=== PATIENT | female | born 1955 | race Two or more races ===

== ENCOUNTER 2018-10-19 14:31 | Inpatient (IN) | payer MEDICARE ==
[~2018-10-19] VITALS: Ht 162.6 cm; Wt 59.9 kg
[2018-10-19] MEDS ORDERED: diphenhydrAMINE HCL 50 MG/ML VIAL ONE (14:51)
[2018-10-19] MEDS ORDERED: HALOPERIDOL LACTATE INJ 5 MG/ML VIAL ONE (14:51)
[2018-10-19] MEDS ORDERED: HALOPERIDOL LACTATE INJ 5 MG/ML VIAL IM ONE (15:00)
[2018-10-19] MEDS ORDERED: diphenhydrAMINE HCL 50 MG/ML VIAL IM ONE (15:00)
--- NOTE | 2018-10-19 15:06 | NUR ---
PT BIBPA FROM SNF FOR INCREASED AGITATION; PT AAOX2-3, PT TO BED 6, VSS, PENDING MD GARVIN
[2018-10-19] MEDS ORDERED: ACET-868 PO (15:10)
[2018-10-19] MEDS ORDERED: HALO5TAB8 PO (15:10)
[2018-10-19] MEDS ORDERED: ATOR10TA PO (15:10)
[2018-10-19] MEDS ORDERED: MAGN400O6 PO (15:10)
[2018-10-19] MEDS ORDERED: BENZ0.5T43 PO (15:10)
[2018-10-19] MEDS ORDERED: GABA-532 PO (15:10)
[2018-10-19] MEDS ORDERED: DULO20CA PO (15:10)
[2018-10-19] MEDS ORDERED: LORA1TAB PO (15:10)
[2018-10-19] MEDS ORDERED: TRAZ-182 PO (15:10)
[2018-10-19] MEDS ORDERED: BISA10SU11 RC (15:10)
[2018-10-19] MEDS ORDERED: OLAN10TA3 PO (15:10)
[2018-10-19] MEDS ORDERED: ACET-2605 PO (15:10)
[2018-10-19] MEDS ORDERED: NA P133E RC (15:10)
[2018-10-19 15:34] LABS: BASOPHILS # (AUTO) 0.1 /CMM (0.0-0.2); EOSINOPHILS % (AUTO) 1.5 % (0.0-6.0); HEMATOCRIT 45 % (33-45); HEMOGLOBIN 14.8 g/dL (11.5-14.8); LYMPHOCYTES # (AUTO) 1.8 /CMM (0.8-4.8); LYMPHOCYTES % (AUTO) 24.5 % (20.0-44.0); MEAN CORPUSCULAR HGB CONC 33 g/dl (31.0-36.0); MEAN CORPUSCULAR VOLUME 97 fL (82-100); MONOCYTES # (AUTO) 0.7 /CMM (0.1-1.30); MONOCYTES % (AUTO) 9.7 % (2.0-12.0); NEUTROPHILS # (AUTO) 4.6 /CMM (1.8-8.9); NEUTROPHILS % (AUTO) 63.3 % (43.0-81.0); PLATELET COUNT (AUTO) 196 /CMM (150-450); RED BLOOD CELL COUNT(AUTO) 4.63 MIL/uL (4.0-5.2); WHITE BLOOD COUNT (AUTO) 7.2 K/uL (4.3-11.0)
--- NOTE | 2018-10-19 15:39 | NUR ---
CALLED [employer] PERSONAL COMPUTER NETWORK ANALYST AND LEFT A MESSAGE
[2018-10-19 15:40] LABS: CALCIUM, SERUM 9.1 mg/dL (8.5-10.1); CARBON DIOXIDE 33 mmol/L (21-32); CHLORIDE 101 mmol/L (98-107); CREATININE 0.8 mg/dL (0.6-1.3); GLUCOSE 106 mg/dL (74-106); POTASSIUM 4.2 mmol/L (3.5-5.1); SODIUM SERUM 138 mmol/L (136-145); UREA NITROGEN, BLOOD 22 mg/dL (7-18)
[2018-10-19 15:45] LABS: ALANINE AMINOTRANSFERASE 22 U/L (12-78); ALBUMIN 3.5 g/dL (3.4-5.0); ALCOHOL, BLOOD < 3 mg/dL (0-0); ALKALINE PHOSPHATASE 100 U/L (46-116); ASPARTATE AMINOTRANSFERASE 19 U/L (15-37); BILIRUBIN,DIRECT 0.1 mg/dL (0.0-0.2); BILIRUBIN,TOTAL 0.5 mg/dL (0.2-1.0); SALICYLATE 2.9 mg/dL (2.8-20.0)
[2018-10-19 15:46] LABS: ACETAMINOPHEN < 2 ug/ml (10-30)
[2018-10-19 16:09] LABS: APPEARANCE,URINE SL CLOUDY (CLEAR); BILIRUBIN,URINE NEGATIVE (NEGATIVE); BLOOD, URINE TRACE Ery/uL (NEGATIVE); COLOR,URINE YELLOW (YELLOW); KETONES,URINE NEGATIVE (NEGATIVE); LEUKOCYTE ESTERASE ,URINE 1+ (NEGATIVE); NITRITE, URINE POSITIVE (NEGATIVE); PROTEIN,URINE NEGATIVE (NEGATIVE); UGLUCOSE NEGATIVE (NEGATIVE); UROBILINOGEN,URINE 0.2 EU/dL (0.2)
[2018-10-19 16:20] LABS: BACTERIA,URINE 2+ /HPF (None Seen); SQUAMOUS EPITHELIAL CELL,UR 0-2 /HPF (None Seen); WBC,URINE 21-50 /HPF (0-3)
--- NOTE | 2018-10-19 16:25 | NUR ---
FAMILY DAY CARE PROVIDER CLINICIAN WILL ARRIVE WITHIN THE HOUR
--- NOTE | 2018-10-19 16:40 | NUR ---
GPS BED 219-B GIVEN
[2018-10-19] MEDS ORDERED: NITROFURANTOIN/NITROFURAN MAC 100 MG CAPSULE PO ONE (17:00)
[2018-10-19] MEDS ORDERED: NITROFURANTOIN/NITROFURAN MAC 100 MG CAPSULE ONE (17:07)
--- NOTE | 2018-10-19 18:15 | NUR ---
REPORT GIVEN TO MARY SOLIZ FOR YASH; PT WILL BE TRANSPORTED TO [facility] VIA W/C
[2018-10-19] MEDS ORDERED: TEMAZEPAM 7.5 MG CAPSULE PO PRN (19:30)
[2018-10-19] MEDS ORDERED: clonazePAM 0.5 MG TABLET PO PRN (19:30)
[2018-10-19] MEDS ORDERED: ACETAMINOPHEN 325 MG TABLET PO PRN ×2 (19:30→20:00)
--- NOTE | 2018-10-19 19:35 | NUR ---
GPS/PROGRAM OR PROJECT ADMINISTRATOR NOTE: ADMITTED A 63 YEAR LD FEMALE FROM [facility] ON 5150 HOLD FOR DTO/GD. PATIENT ARRIVED TO THE UNIT AROUND 1845 VIA GURNEY ACCOMPANIED BY ER STAFF. PLACED PATIENT IN BED COMFORTABLY. PATIENT IS A/O 1-2, LABILE, HYPERVERBAL, UNCOOPERATIVE, FOLLOWS REDIRECTION, NON-COMPLIANT, AGGRESSIVE, LOUD, YELLING, BELLIGERENT, UNKEMPT, INAPPROPRIATE. SELECTIVE WITH HER RESPONSES. GARBLED SPEECH AND NOT CLEAR. PATIENT IS A FULL CODE, DOES NOT TAKE FLU OR PNEUMONIA SHOTS. SHE WAS GIVEN A SANDWICH AND JUICE. PATIENT AMBULATORY/STEADY GAIT, SKIN INTACT, REFUSED SKIN ASSESSMENT. BELONGINGS INVENTORIED AND CHECKED FOR CONTRABAND, NO CONTRABAND FOUND. ENVIRONMENTAL SAFETY CHECK DONE. PATIENT'S HANDBOOK AND MEDICATION GUIDE GIVEN. PATIENT IS UNDER THE PSYCHIATRIC CARE OF DR. ORTEGA AND MEDICAL CARE FROM [facility]. STARTED MACROBID IN ER FOR UTI. PAGED [facility] DOCTOR FOR MED RECONCILIATION. MRSA SCREEN DONE IN ER. NO FAMILY TO NOTIFY OF ADMISSION, NONE GIVEN PER HER RECORD. BED LOCKED AND PLACED ON LOWEST POSITION FOR SAFETY. WILL CONTINUE TO MONITOR Q 15 MINS. FOR SAFETY AND BEHAVIOR. Addendum: 10/20/18 at 0648 by EMILIA BARROW RN NOTES CONTINUED: PATIENT WAS AGITATED, AGGRESSIVE AND UNMANAGEABLE AT THE FACILITY, HIT SEVERAL STAFF, THREW COFFEE THREW THINGS THAT SHE SAW AND ATTEMPTING TO LEAVE THE FACILITY.
[2018-10-19 20:35] VITALS: BP 131/86
[2018-10-20 08:00] VITALS: BP 129/82
[2018-10-20] MEDS: LORAZEPAM 0.5 MG TABLET PO PRN (09:17)
--- NOTE | 2018-10-20 09:22 | NUR ---
RN NOTE:PATIENT AGITATED AND NOT FOLLOWING DIRECTIONS MEDICATED WITH ATIVAN 0.5MG X1 .WILL CONTINUE TO MONITOR.
[2018-10-20] MEDS ORDERED: MAGNESIUM HYDROXIDE 30 ML UDC PO PRN (12:00)
[2018-10-20] MEDS ORDERED: BISACODYL SUPP (10 MG) 10 MG/SUPP.RECT SUPP.RECT RC PRN (12:00)
[2018-10-20] MEDS: GABAPENTIN 100 MG CAPSULE PO SCH ×2 (13:01→17:00)
[2018-10-20] MEDS: NITROFURANTOIN/NITROFURAN MAC 100 MG CAPSULE PO SCH ×2 (13:04→20:31)
[2018-10-20] MEDS ORDERED: OLANZAPINE 10 MG VIAL IM STA (13:11)
--- NOTE | 2018-10-20 13:28 | NUR ---
RN NOTE:PATIENT AGITATED AND ASSAULTIVE NOT FOLLOWING DIRECTION OFFERED PO MEDS REFUSED ,CLEAR LIMIT SETTING VERBAL DE ESCALATION BUT UNSUCCESSFUL ,CALLED WITH NEW ORDER ZYPREXA 5MG IM X1 .ALL ORDERS CARRIED OUT ,WILL CONTINUE TO MONITOR .
--- NOTE | 2018-10-20 14:49 | NUR ---
GROUP NOTE: Pt was present but was asked to leave group as she was being disruptive and was in a manic state. Pt received and IM due to agitation and verbal aggressive behavior.
[2018-10-20 16:00] VITALS: BP 124/60
[2018-10-20] MEDS ORDERED: HALOPERIDOL 5 MG TABLET PO SCH (18:30)
--- NOTE | 2018-10-20 21:34 | NUR ---
GPS RN NOTES: PT. REFUSED VITAL SIGNS AND NIGHT SCHEDULE MEDS , TRAZADONE 50 MG PO , ZPREXA 15 MG PO, ENCOURAGED EXPLAINED RISKS AND BENEFITS ,PT. BEHAVIOUR VERY UNCOOPERTIVE ,AGGRESSIVE , PT. STRONGLY REFUSED MEDS , PER PT. I DONT WANTS TAKING ANY MEDICATIONS.
[2018-10-20] MEDS: OLANZAPINE 10 MG TABLET PO SCH (21:40)
[2018-10-20] MEDS: TRAZODONE 50 MG TABLET PO SCH (21:40)
--- NOTE | 2018-10-21 07:27 | NUR ---
GPS RN NOTES: DURING SHIFT PT. NOTED VERY UNCOOPERTIVE , DISORGNIZED CONFUSED ,YELLING SCREAMING ,ASSULTIVE , ANXIOUS,HYPERVERBAL, , NOT FOLLOWING ANY DIRECTIONS , ENDORSE TO DAY NURSE FOR CONTINUITY OF CARE .WILL CONTINUE TO MONITOR.
[2018-10-21 07:52] LABS: BASOPHILS % (AUTO) 0.3 % (0.0-2.0); EOSINOPHILS % (AUTO) 0.5 % (0.0-6.0); HEMATOCRIT 47 % (33-45); HEMOGLOBIN 15.1 g/dL (11.5-14.8); LYMPHOCYTES # (AUTO) 1.6 /CMM (0.8-4.8); MEAN CORPUSCULAR HGB CONC 32 g/dl (31.0-36.0); MEAN CORPUSCULAR VOLUME 97 fL (82-100); NEUTROPHILS # (AUTO) 11.8 /CMM (1.8-8.9); NEUTROPHILS % (AUTO) 81.2 % (43.0-81.0); PLATELET COUNT (AUTO) 204 /CMM (150-450); RED BLOOD CELL COUNT(AUTO) 4.82 MIL/uL (4.0-5.2); WHITE BLOOD COUNT (AUTO) 14.5 K/uL (4.3-11.0)
[2018-10-21 08:16] LABS: ALBUMIN 3.1 g/dL (3.4-5.0); BILIRUBIN,TOTAL 0.5 mg/dL (0.2-1.0); CALCIUM, SERUM 8.6 mg/dL (8.5-10.1); CREATININE 0.6 mg/dL (0.6-1.3); POTASSIUM 4.3 mmol/L (3.5-5.1); TOTAL PROTEIN, SERUM 6.6 g/dL (6.4-8.2)
[2018-10-21] MEDS: NITROFURANTOIN/NITROFURAN MAC 100 MG CAPSULE PO SCH ×2 (08:40→21:00)
[2018-10-21] MEDS: HALOPERIDOL 5 MG TABLET PO SCH ×3 (08:41→16:38)
[2018-10-21] MEDS: BENZTROPINE MESYLATE (1 MG) 1 MG TABLET PO SCH ×2 (08:44→16:38)
[2018-10-21] MEDS: GABAPENTIN 100 MG CAPSULE PO SCH ×3 (08:45→17:00)
[2018-10-21] MEDS: ATORVASTATIN 10 MG TABLET PO SCH (08:45)
--- NOTE | 2018-10-21 15:46 | NUR ---
Patient remained non compliant with all routine medication. Selective with medication and difficult to redirect and educate pertaining to medication. Redirected accordingly and encourage to express feelings and concerns.
--- NOTE | 2018-10-21 15:54 | NUR ---
GROUP NOTE: SW prompted pt to attend group on this present day. Pt was asleep in her room and not easily aroused.
[2018-10-21 16:00] VITALS: BP 106/58
--- NOTE | 2018-10-21 16:17 | NUR ---
SW contacted pts brother Marcos Montgomery [phone] who provided SW with collateral information and informed her that pt currently lives at [address] [phone]. Brother stated pt has been living there for 11 years and wants her to return to that [facility]. Brother informed SW that he is pts payee. Pt stated that pt has been off her medication for a couple week and agrees with her current psych hospitalization. SW discussed pts treatment and medication non compliance and brother stated that pt only takes Haldol 5mg and SW informed him that pt is only taking Haldol and refusing all other psych medications. Brother stated that she does not need to be taking other medication except for Haldol. Brother also stated that he would not be able to transport pt back home and stated hospital needed to pay for transportation back. SW informed him that [facility] was not able to assist pt with transportation other than with a TAP card but brother refused stating she needed pt be transported via ambulance or taxi. SW informed him that she would contact the [facility] to discuss transportation options. Brother also reported that pt has a long history of schizophrenia and that he was involved in her care but limited his visits with her. He also stated that he worked signal timer and was only available to speak after 1600. SW provided him with the nursed station's phone number and also provided him with visiting hours information.
[2018-10-21 20:34] VITALS: BP 142/91
[2018-10-21] MEDS: OLANZAPINE 10 MG TABLET PO SCH (21:16)
[2018-10-21] MEDS: TRAZODONE 50 MG TABLET PO SCH (21:16)
[2018-10-22 08:00] VITALS: BP 117/59
[2018-10-22] MEDS: BENZTROPINE MESYLATE (1 MG) 1 MG TABLET PO SCH ×2 (08:09→16:29)
[2018-10-22] MEDS: HALOPERIDOL 5 MG TABLET PO SCH ×3 (08:09→16:29)
[2018-10-22] MEDS: NITROFURANTOIN/NITROFURAN MAC 100 MG CAPSULE PO SCH ×3 (08:09→21:46)
[2018-10-22] MEDS: GABAPENTIN 100 MG CAPSULE PO SCH ×3 (08:14→16:39)
[2018-10-22] MEDS: ATORVASTATIN 10 MG TABLET PO SCH (08:14)
--- NOTE | 2018-10-22 08:39 | NUR ---
GPS/RN-NOTES PATIENT SELECTIVE WITH MEDICATIONS, REFUSED NEURONTIN AND LIPITOR , EXPLAINED RISK AND BENEFITS BUT PATIENT STATED" I'M OK WITHOUT IT AND I DON'T NEED IT". OFFERED X3.
--- NOTE | 2018-10-22 09:44 | NUR ---
INITIAL DISCHARGE PLAN: Per patient she wishes to return to [facility] [address] [facility] [phone]. Pts brother Marcos [phone] also wishes for pt to return to the board and care. MARÍA will help form a safe and proper discharge in collaboration with .
--- NOTE | 2018-10-22 09:45 | NUR ---
MARÍA contacted Jerzy, manager engagement at [facility] [address] [facility] [phone] who stated pt is able to return only if she is on new medication and compliant with treatment. MARÍA informed him that pt has been refusing all medications except for Haldol and Cogentin and also informed him that pts brother is also agreeable with pt not taking other antipsychotic medication. Jerzy stated that he will be speaking to brother to reinforce pts compliance with all her medications in order for pt to return to [facility].
[2018-10-22 16:00] VITALS: BP 134/67
[2018-10-22 20:20] VITALS: BP 133/70
[2018-10-22] MEDS: TRAZODONE 50 MG TABLET PO SCH (21:48)
--- NOTE | 2018-10-22 21:49 | NUR ---
GPS RN NOTES:PT. REFUSED NIGHT SCHEDULE MEDS , TRAZADONE 100 MG PO , MACROBID 100 MG PO, ENCOURAGED EXPLAINED RISKS AND BENEFITS , PT. BEHAVIOUR VERY UNCOOPERTIVE ,AGGRESSIVE , PT. STRONGLY REFUSED MEDS , PER PT. I DONT WANTS TAKING ANY MEDICATIONS ,BECAUSE THIS MEDS VERY EXPENSIVE , I DONT WANTS TO PAID.
[2018-10-23 08:00] VITALS: BP 137/64
[2018-10-23] MEDS: HALOPERIDOL 5 MG TABLET PO SCH ×3 (08:31→16:50)
[2018-10-23] MEDS: NITROFURANTOIN/NITROFURAN MAC 100 MG CAPSULE PO SCH ×2 (08:31→21:58)
[2018-10-23] MEDS: GABAPENTIN 100 MG CAPSULE PO SCH ×3 (08:32→16:50)
[2018-10-23] MEDS: BENZTROPINE MESYLATE (1 MG) 1 MG TABLET PO SCH ×2 (08:32→16:50)
[2018-10-23] MEDS: ATORVASTATIN 10 MG TABLET PO SCH (08:32)
[2018-10-23 16:00] VITALS: BP 111/58
--- NOTE | 2018-10-23 16:25 | NUR ---
Group Note: Pt attended group therapy that took place on 10/23/18 at 2:30PM but was unable to participate due to the pt being disruptive and exhibiting cognitive impairment.
--- NOTE | 2018-10-23 19:44 | NUR ---
GPS RN NOTE, RECEIVED PATIENT AWAKE AND IN BED, NO S/S OR COMPLAINTS OF PAIN AT THIS TIME. PATIENT IS DISPLAYING NO S/S OF APPARENT DISTRESS AT THIS TIME. PATIENT BREATHING IS UNLABORED WITH EQUAL RISE AND FALL OF THE CHEST. PATIENT IS ALERT AND ORIENTED X 1 ON ROOM AIR WITH A SPO2 OF 95 %. PATIENT IS MED COMPLAINT, DISORGANIZED, ANXIOUS, COOPERATIVE, PARANOID, HYPERVERBAL, AND NEEDS REORIENTATION. PATIENT DENIES SUICIDE AND HOMICIDAL IDEATIONS AT THIS TIME. PATIENT ASSISTED WITH TURNING AND REPOSITIONING Q2HR AND PRN FOR COMFORT AND CIRCULATION. PATIENT HAS NO NEEDS AT THIS TIME. PATIENT EDUCATED ON THE USE OF THE CALL ELAM. PATIENT BED SIDE RAILS ARE UP X 2 FOR SAFETY, BED IS LOCKED, AND LOW WILL CONTINUE TO MONITOR AND MAINTAIN SAFETY.
--- NOTE | 2018-10-23 19:54 | NUR ---
GPS RN NOTE, PATIENT HAS A COMPLAINT OF FEELING CONSTIPATION AND IS REQUESTING MILK OF MAGNESIA AT THIS TIME. PATIENT VITAL SIGNS ARE STABLE. GAVE MILK OF MAGNESIA 30 ML PO Q12 HR PRN ORDERED. WILL CONTINUE TO MONITOR THIS PATIENT.
[2018-10-23 20:00] VITALS: BP 105/47
[2018-10-23] MEDS: TRAZODONE 50 MG TABLET PO SCH (22:00)
--- NOTE | 2018-10-23 22:15 | NUR ---
GPS RN NOTE, PATIENT REFUSED TO TAKE TRAZODONE 100 MG PO HS. OFFERED TRAZODONE THREE TIMES BUT STILL PATIENT REFUSED STATING, " I DON'T TAKE THAT MEDICATION, I DON'T TRUST IT, IT IS SOMETHING I HAVE NEVER TAKEN BEFORE ". EDUCATED PATIENT ON THE RISKS AND BENEFITS OF TAKING AND REFUSING TRAZODONE. WILL CONTINUE TO MONITOR THIS PATIENT.
[2018-10-24 08:00] VITALS: BP 117/65
[2018-10-24] MEDS: HALOPERIDOL 5 MG TABLET PO SCH ×3 (08:32→16:25)
[2018-10-24] MEDS: NITROFURANTOIN/NITROFURAN MAC 100 MG CAPSULE PO SCH (08:33)
[2018-10-24] MEDS: BENZTROPINE MESYLATE (1 MG) 1 MG TABLET PO SCH ×2 (08:33→16:25)
[2018-10-24] MEDS: GABAPENTIN 100 MG CAPSULE PO SCH ×3 (08:33→16:25)
[2018-10-24] MEDS: LORAZEPAM 0.5 MG TABLET PO PRN ×2 (08:34→11:07)
[2018-10-24] MEDS: ATORVASTATIN 10 MG TABLET PO SCH (08:34)
--- NOTE | 2018-10-24 11:07 | NUR ---
RN -CO: Patient changed her mind and asked for her Ativan 0.5 mg PO for anxiety. Patient is hyperverbal, restless ans verbally abusive to staff. Patient needs constant redirection.
--- NOTE | 2018-10-24 15:56 | NUR ---
RN-CO: Patient stated : don't give me Neurontin I have bad feelings about it, that medication doesn't help."
[2018-10-24 16:00] VITALS: BP 118/66
[2018-10-24 19:54] VITALS: BP 102/54
[2018-10-24 20:12] VITALS: BP 102/54
[2018-10-24] MEDS: TRAZODONE 50 MG TABLET PO SCH (22:00)
[2018-10-25 08:00] VITALS: BP 135/71
[2018-10-25] MEDS: BENZTROPINE MESYLATE (1 MG) 1 MG TABLET PO SCH ×2 (08:01→16:17)
[2018-10-25] MEDS: ATORVASTATIN 10 MG TABLET PO SCH (08:01)
[2018-10-25] MEDS: GABAPENTIN 100 MG CAPSULE PO SCH ×3 (08:01→16:17)
[2018-10-25] MEDS: HALOPERIDOL 5 MG TABLET PO SCH ×3 (08:01→16:17)
[2018-10-25] MEDS: LORAZEPAM 0.5 MG TABLET PO PRN ×2 (14:18→21:30)
--- NOTE | 2018-10-25 14:20 | NUR ---
GPS/RN-NOTES NOTED PATIENT PACING IN THE HALLWAY AND DAY ROOM,HYPERVERBAL ,DEMANDING AND YELLING AT STAFF, DESPITE ALL NEEDS ATTENDED . PATIENT REQUESTING FOR ATIVAN STATED" GIVE ME ATIVAN NOW", ATIVAN 0.5MG P.O GIVEN PRN ORDER. WILL CONT. MONITORING Q15 MINS. FOR SAFETY AND BEHAVIOR.
--- NOTE | 2018-10-25 15:20 | NUR ---
GPS/RN-NOTES PATIENT LAYING IN BED CALM,NO ACUTE DISTRESS NOTED.
[2018-10-25 16:00] VITALS: BP 143/66
[2018-10-25 19:54] VITALS: BP 151/62
[2018-10-25] MEDS: TRAZODONE 50 MG TABLET PO SCH (21:30)
[2018-10-26] MEDS: TEMAZEPAM 7.5 MG CAPSULE PO PRN (01:50)
[2018-10-26 08:00] VITALS: BP 90/50
[2018-10-26] MEDS: ATORVASTATIN 10 MG TABLET PO SCH (09:00)
[2018-10-26] MEDS: GABAPENTIN 100 MG CAPSULE PO SCH ×3 (09:00→17:00)
[2018-10-26] MEDS: HALOPERIDOL 5 MG TABLET PO SCH ×3 (09:30→21:36)
[2018-10-26] MEDS: BENZTROPINE MESYLATE (1 MG) 1 MG TABLET PO SCH ×2 (09:31→17:00)
[2018-10-26 15:14] LABS: BASOPHILS % (AUTO) 0.5 % (0.0-2.0); EOSINOPHILS % (AUTO) 1.5 % (0.0-6.0); HEMATOCRIT 43 % (33-45); LYMPHOCYTES # (AUTO) 1.9 /CMM (0.8-4.8); LYMPHOCYTES % (AUTO) 24.3 % (20.0-44.0); MEAN CORPUSCULAR HGB CONC 33 g/dl (31.0-36.0); MEAN CORPUSCULAR VOLUME 96 fL (82-100); MONOCYTES # (AUTO) 0.7 /CMM (0.1-1.30); MONOCYTES % (AUTO) 9.4 % (2.0-12.0); NEUTROPHILS % (AUTO) 64.3 % (43.0-81.0); PLATELET COUNT (AUTO) 220 /CMM (150-450); RED BLOOD CELL COUNT(AUTO) 4.43 MIL/uL (4.0-5.2); WHITE BLOOD COUNT (AUTO) 7.8 K/uL (4.3-11.0)
[2018-10-26 15:27] LABS: BILIRUBIN,TOTAL 0.2 mg/dL (0.2-1.0); CREATININE 0.9 mg/dL (0.6-1.3); POTASSIUM 4.4 mmol/L (3.5-5.1); TOTAL PROTEIN, SERUM 6.5 g/dL (6.4-8.2)
[2018-10-26 16:00] VITALS: BP 122/59
[2018-10-26] MEDS: LORAZEPAM 0.5 MG TABLET PO PRN (17:06)
[2018-10-26 20:00] VITALS: BP 123/95
[2018-10-27 08:00] VITALS: BP 115/78
[2018-10-27] MEDS: BENZTROPINE MESYLATE (1 MG) 1 MG TABLET PO SCH ×2 (08:39→16:23)
[2018-10-27] MEDS: HALOPERIDOL 5 MG TABLET PO SCH ×3 (08:39→21:38)
[2018-10-27] MEDS: GABAPENTIN 100 MG CAPSULE PO SCH ×3 (08:40→16:23)
[2018-10-27] MEDS: ATORVASTATIN 10 MG TABLET PO SCH (08:40)
[2018-10-27] MEDS: LORAZEPAM 0.5 MG TABLET PO PRN ×2 (11:53→21:38)
--- NOTE | 2018-10-27 13:34 | NUR ---
SW attempted to contact Jerzy, business liaison manager at [address] [phone], SW was unable to reach him as there was a busy tone. MARÍA will try again at a later time.
--- NOTE | 2018-10-27 14:21 | NUR ---
SW attempted to contact Jerzy, behavioral health case manager at [address] [phone], SW was unable to reach him as there was a busy tone. MARÍA will try again at a later time.
--- NOTE | 2018-10-27 15:00 | NUR ---
GROUP NOTE: Pt was present but was asked to leave group as she was being disruptive and was in a manic state.
[2018-10-27 16:00] VITALS: BP 105/54
--- NOTE | 2018-10-27 16:03 | NUR ---
SW attempted to contact Jerzy, service operations manager at [address] [phone], SW was unable to reach him as there was a busy tone. MARÍA will try again at a later time.
[2018-10-27 20:15] VITALS: BP 104/68
[2018-10-27] MEDS: TEMAZEPAM 7.5 MG CAPSULE PO PRN (21:38)
[2018-10-28 08:00] VITALS: BP 117/58
--- NOTE | 2018-10-28 08:33 | NUR ---
SW attempted to contact Jerzy, wastewater manager at [address] [phone], SW was unable to reach him as there was a busy tone. MARÍA will try again at a later time.
--- NOTE | 2018-10-28 08:42 | NUR ---
MARÍA faxed SNF referral to [facility] Address: [address] [place] [address] for review.
[2018-10-28] MEDS: BENZTROPINE MESYLATE (1 MG) 1 MG TABLET PO SCH (08:50)
[2018-10-28] MEDS: HALOPERIDOL 5 MG TABLET PO SCH ×2 (08:51→12:33)
[2018-10-28] MEDS: ATORVASTATIN 10 MG TABLET PO SCH (08:54)
[2018-10-28] MEDS: GABAPENTIN 100 MG CAPSULE PO SCH ×2 (08:55→12:33)
--- NOTE | 2018-10-28 09:14 | NUR ---
SW received a call from Jerzy, self storage manager at [address] [phone] stating that he is willing to accept pt if their sister [facility] facility [facility] will take her first for medication stabilization. Jerzy stated that he is aware that pt is only taking Haldol .5 TID and stated that she needs to be on a combination of other medications in order to take her back as pt is still having outbursts. Jerzy stated that he will be contacting SW will a definite answer later during the day.
--- NOTE | 2018-10-28 09:53 | NUR ---
MARÍA faxed SNF referral to [facility] Address: [address] [place] [phone] per pts request.
--- NOTE | 2018-10-28 13:13 | NUR ---
DISCHARGE NOTE: Pt will be discharged at 2:00pm via [facility] to [facility] Address: [address] [place] [address] . Pts brother Marcos Montgomery [phone] has been notified via voicemail. Pts mood is manic with congruent affect. Pt denied visual/auditory hallucinations and denied suicidal/homicidal ideations. Pt will be under the care of Psychiatrist: Dr. Mosquera Address: [address] [place] [address] and Automobile Upholsterer Apprentice: Dr Trujillo Address: [address] [address] . For smoking cessation, patient was referred to the [employer] [place] [employer] and [employer] [place] [employer] [id number]. Pt will also participate in a telephone meeting with [employer] [phone] on Monday October 29, 2018 at 8:00am. The multidisciplinary exitcare form was done, printed, signed, and given to the patient. Addendum: 10/28/18 at 1409 by MENDOZA DANIEL Pt will be discharged at 2:00pm via [facility] to [facility] Address: [address] [place] [address] . Pts brother Marcos Montgomery [phone] has been notified. Psychiatrist: Dr. Koffi Alcala [address] [facility] [address], [place] [address] [phone] Automobile Upholsterer Apprentice: Dr. Luis Miguel Loyd Address: [address] [place] [address]
--- NOTE | 2018-10-28 15:46 | NUR ---
NURSING DISCHARGE NOTE: PT WAS DISCHARGED TODAY AT 1545 TO [facility] LOCATED AT [address] [place] [phone], . PT LEFT THE UNIT VIA GURNEY BY OTIS ACCOMPANIED BY 2 RESIDENT ENGINEER. PT IS A&OX3, CALM, COOPERATIVE, PLEASANT, HYPERVERBAL, REDIRECTABLE, MED COMPLIANT, DENIES SI/HI/AVH AT THE TIME OF DISCHARGE. NO S/S OF ANY DISTRESS NOTED. NO C/O PAIN OR ANY DISCOMFORT. DISCHARGE ORDER WAS GIVEN BY DR. ORTEGA WITH ORDER TO CONTINUE ALL MEDS. PT WAS SEEN AND ASSESSED BY DR. MATHEWS AND HAS BEEN MEDICALLY CLEARED FOR DISCHARGE. REPORT WAS GIVEN TO MARTÍNEZ DE LEON AT [phone] AND RESIDENT ENGINEER WELL. PT WAS COOPERATIVE WITH DISCHARGE PROCESS AND HAS SIGNED ALL DISCHARGE PAPERWORK. PT WAS GIVEN DISCHARGE INSTRUCTIONS AND HAS VERBALIZED UNDERSTANDING OF INSTRUCTIONS AND HER MEDICATIONS. VS STABLE. SKIN INTACT. ALL BELONGINGS WERE RETURNED TO PT WELL.
== END 2018-10-28 15:45 | DRG 885 ==
LOC: ER 14:31 → GPS 18:31
PROVIDERS: ADMIT Psychiatry & Neurology Psychiatry; ATTEND Hospitalist
DX: F25.9 Schizoaffective disorder, unspecified (principal); N39.0 Urinary tract infection, site not specified; F41.9 Anxiety disorder, unspecified; Z88.4 Allergy status to anesthetic agent; Z88.0 Allergy status to penicillin; Z79.899 Other long term (current) drug therapy; F29 Unspecified psychosis not due to a substance or known physiological condition; Z73.6 Limitation of activities due to disability; E86.0 Dehydration; Z91.14 Patient's other noncompliance with medication regimen; E78.5 Hyperlipidemia, unspecified; B96.20 Unspecified Escherichia coli [E. coli] as the cause of diseases classified elsewhere; R79.89 Other specified abnormal findings of blood chemistry; F41.0 Panic disorder [episodic paroxysmal anxiety]
CPT/HCPCS: 36415; 80048-TC; 80053-TC; 80061-TC; 80076-TC; 80305; 81000-TC; 85025-TC; 87081-TC; 87086-TC; 87186-TC; G0480; J1200; J1630; J3490